=== PATIENT | male | born 1945 | race Caucasian/White ===

== ENCOUNTER 2023-03-29 13:36 | Emergency (ER) | payer MEDICARE, BC ==
[~2023-03-29] VITALS: Ht 175.3 cm; Wt 86.2 kg
[2023-03-29 14:17] VITALS: BP 157/73
[2023-03-29 14:49] LABS: BASOPHILS ABSOLUTE AUTO 0.04 K/mm3 (0.00-0.23); BASOPHILS PERCENT AUTO 1 % (0-2); EOSINOPHILS ABSOLUTE AUTO 0.43 K/mm3 (0.00-0.68); EOSINOPHILS PERCENT AUTO 6 % (0-6); Hematocrit 32.8 % (37.0-53.0); Hemoglobin 10.9 g/dL (13.5-17.5); IMMATURE GRAN ABSOLUTE AUTO 0.02 K/mm3 (0.00-0.10); IMMATURE GRAN PERCENT AUTO 0 % (0-1); LYMPHOCYTES ABSOLUTE AUTO 1.87 K/mm3 (0.84-5.20); LYMPHOCYTES PERCENT AUTO 25 % (21-46); MONOCYTES ABSOLUTE AUTO 0.67 K/mm3 (0.16-1.47); MONOCYTES PERCENT AUTO 9 % (4-13); Mean Corpuscular HGB 31.8 pg (26.0-34.0); Mean Corpuscular HGB Conc 33.2 g/dL (31.5-36.5); Mean Corpuscular Volume 96 fL (80-100); NEUTROPHILS ABSOLUTE AUTO 4.53 K/mm3 (1.96-9.15); NEUTROPHILS PERCENT AUTO 60 % (41-73); Platelet Count 231 K/mm3 (150-400); RDW Coefficient Variation 13.1 % (11.7-14.2); Red Blood Cell Count 3.43 M/mm3 (4.30-5.90); White Blood Cell Count 7.56 K/mm3 (4.00-11.30)
[2023-03-29 15:10] LABS: Albumin, Blood 3.2 g/dL (3.4-5.0); Albumin/Globulin Ratio 0.9 (0.8-1.8); Bilirubin, Total 0.3 mg/dL (0.1-1.0); Bun/Creatinine Ratio 27.4 (12.0-20.0); Calcium, Blood 8.4 mg/dL (8.5-10.1); Creatinine, Blood 0.77 mg/dL (0.60-1.20); Globulin, Blood 3.4 g/dL (2.2-4.0); Potassium, Blood 4.4 mmol/L (3.5-5.5); Total Protein, Blood 6.6 g/dL (6.4-8.2)
[2023-03-29] MEDS ORDERED: SULTRIDS PO (15:46)
== END 2023-03-29 16:11 | disposition home or self-care (01) ==
LOC: ER 13:36
PROVIDERS: Physician Assistant
DX: L03.115 Cellulitis of right lower limb (principal); I10 Essential (primary) hypertension
CPT/HCPCS: 80053; 85025; A9270

== ENCOUNTER 2023-04-25 01:31 | Day surgery (SDC) | payer MEDICARE, BC ==
[~2023-04-25 01:31] MED LIST: SULTRIDS PO
== END 2023-04-25 22:42 | disposition home or self-care (01) ==
LOC: WOUND 01:31
DX: S81.801D Unspecified open wound, right lower leg, subsequent encounter (principal); I10 Essential (primary) hypertension; I73.9 Peripheral vascular disease, unspecified; S80.811D Abrasion, right lower leg, subsequent encounter; L03.115 Cellulitis of right lower limb; W22.8XXA Striking against or struck by other objects, initial encounter
CPT/HCPCS: G0463

== ENCOUNTER 2023-05-09 03:06 | Day surgery (SDC) | payer MEDICARE, BC | END 2023-05-09 22:38 | disposition home or self-care (01) | LOC: WOUND 03:06 | DX: S81.801D Unspecified open wound, right lower leg, subsequent encounter (principal); X58.XXXD Exposure to other specified factors, subsequent encounter; I10 Essential (primary) hypertension; I73.9 Peripheral vascular disease, unspecified | CPT/HCPCS: G0463 ==

== ENCOUNTER 2023-05-30 01:04 | Day surgery (SDC) | payer MEDICARE, BC | END 2023-05-30 22:55 | disposition home or self-care (01) | LOC: WOUND 01:04 | DX: S81.801D Unspecified open wound, right lower leg, subsequent encounter (principal); W22.8XXD Striking against or struck by other objects, subsequent encounter; I10 Essential (primary) hypertension; I73.9 Peripheral vascular disease, unspecified | CPT/HCPCS: G0463 ==

== ENCOUNTER 2023-06-03 02:00 | Day surgery (SDC) | payer MEDICARE, BC | END 2023-06-03 22:52 | disposition home or self-care (01) | LOC: WOUND 02:00 | DX: S81.801D Unspecified open wound, right lower leg, subsequent encounter (principal); I10 Essential (primary) hypertension; I73.9 Peripheral vascular disease, unspecified | CPT/HCPCS: A9270 ==

== ENCOUNTER 2023-06-06 03:47 | Day surgery (SDC) | payer MEDICARE, BC | END 2023-06-06 23:17 | disposition home or self-care (01) | LOC: WOUND 03:47 | DX: S81.801D Unspecified open wound, right lower leg, subsequent encounter (principal); X58.XXXD Exposure to other specified factors, subsequent encounter; I10 Essential (primary) hypertension; I73.9 Peripheral vascular disease, unspecified; I87.2 Venous insufficiency (chronic) (peripheral) | CPT/HCPCS: A9270 ==

== ENCOUNTER 2023-06-13 00:44 | Day surgery (SDC) | payer MEDICARE, BC | END 2023-06-13 22:40 | disposition home or self-care (01) | LOC: WOUND 00:44 | DX: S81.801A Unspecified open wound, right lower leg, initial encounter (principal); I10 Essential (primary) hypertension; L03.115 Cellulitis of right lower limb; I73.9 Peripheral vascular disease, unspecified; I87.2 Venous insufficiency (chronic) (peripheral); X58.XXXA Exposure to other specified factors, initial encounter | CPT/HCPCS: G0463 ==

== ENCOUNTER 2023-06-20 03:53 | Day surgery (SDC) | payer MEDICARE, BC | END 2023-06-20 22:39 | disposition home or self-care (01) | LOC: WOUND 03:53 | DX: S81.801D Unspecified open wound, right lower leg, subsequent encounter (principal); X58.XXXD Exposure to other specified factors, subsequent encounter; I10 Essential (primary) hypertension; I73.9 Peripheral vascular disease, unspecified; I87.2 Venous insufficiency (chronic) (peripheral) | CPT/HCPCS: 93970; G0463 ==

== ENCOUNTER 2023-06-27 01:20 | Day surgery (SDC) | payer MEDICARE, BC | END 2023-06-27 22:36 | disposition home or self-care (01) | LOC: WOUND 01:20 | DX: S80.811A Abrasion, right lower leg, initial encounter (principal); L03.115 Cellulitis of right lower limb; I10 Essential (primary) hypertension; I73.9 Peripheral vascular disease, unspecified; I87.2 Venous insufficiency (chronic) (peripheral); X58.XXXA Exposure to other specified factors, initial encounter | CPT/HCPCS: G0463 ==

== ENCOUNTER 2023-07-04 02:21 | Day surgery (SDC) | payer MEDICARE, BC | END 2023-07-04 22:47 | disposition home or self-care (01) | LOC: WOUND 02:21 | DX: L03.115 Cellulitis of right lower limb (principal); S81.801D Unspecified open wound, right lower leg, subsequent encounter; W22.8XXD Striking against or struck by other objects, subsequent encounter; I10 Essential (primary) hypertension; I73.9 Peripheral vascular disease, unspecified; I87.2 Venous insufficiency (chronic) (peripheral) | CPT/HCPCS: G0463 ==